=== PATIENT | female | born 1985 | race American Indian/Alaskan Native ===

== ENCOUNTER 2018-01-04 21:03 | Emergency (ER) | payer OTHER ==
[2018-01-04] MEDS ORDERED: Benzocaine 20% Topical Spray UD MUCMEM ONE (21:44)
[2018-01-04] MEDS ORDERED: Lidocaine 2% Viscous Solution 15 ML Cup PO ONE (21:44)
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
[2018-01-04] MEDS ORDERED: Ketorolac 60 MG/2 ML SDV IM ONE (21:54)
[2018-01-04 23:07] VITALS: BP 115/61
== END 2018-01-04 22:50 | disposition home or self-care (01) ==
LOC: MW.ED 21:03
DX: K04.7 Periapical abscess without sinus (principal); Z87.891 Personal history of nicotine dependence; Z88.5 Allergy status to narcotic agent
CPT/HCPCS: 96372; 99283; A9270; J1885; 99282